=== PATIENT | male | born 1955 | race Caucasian/White ===

== ENCOUNTER 2020-02-05 09:30 | Inpatient (IN) ==
[~2020-02-05 09:30] MED LIST: Vancomycin 1,000 MG, Sodium Chloride IRRigation 1,000 ML IR ONE
[2020-02-05] MEDS ORDERED: Vancomycin 1,500 MG/265 ML IV.SOLN IVPB ONE (09:58)
[2020-02-05] MEDS ORDERED: Ringers Solution, Lactated 1,000 ML IVC SCH ×2 (10:00→10:15)
[2020-02-05] MEDS ORDERED: *HR* HYDROmorphone PF 0.5 MG/0.5 ML SYRINGE IVP PRN (10:10)
[2020-02-05] MEDS ORDERED: *HR* OxyCODONE/APAP 5/325 TABLET PO PRN (10:10)
[2020-02-05] MEDS ORDERED: Ondansetron 4 MG/2 ML VIAL IVP ONE (10:10)
[2020-02-05] MEDS ORDERED: *HR* Midazolam HCl 2 MG/2 ML VIAL ONE (10:39)
[2020-02-05] MEDS ORDERED: *HR* Phenylephrine 10 MG/ML VIAL ONE (10:39)
[2020-02-05] MEDS ORDERED: *HR* Rocuronium Bromide 50 MG/5 ML VIAL ONE (10:39)
[2020-02-05] MEDS ORDERED: *HR* Propofol 200 MG/20 ML VIAL IVP ONE (10:39)
[2020-02-05] MEDS ORDERED: Lidocaine -MPF 2% 2 ML VIAL ONE (10:39)
[2020-02-05] MEDS ORDERED: *HR* Remifentanil 1 MG VIAL IVP ONE ×2 (10:39→13:37)
[2020-02-05] MEDS ORDERED: *HR* Heparin 5,000 UNIT/ML VIAL ONE (10:39)
[2020-02-05] MEDS ORDERED: *HR* FentaNYL (PF) 100 MCG/2 ML VIAL ONE (10:39)
[2020-02-05] MEDS ORDERED: Neostigmine Methylsulfate 3 MG/3 ML SYRINGE ONE ×2 (10:40→14:14)
[2020-02-05] MEDS ORDERED: Clindamycin 900 MG/50 ML 900 MG/50 ML IV.SOLN IVPB ONE ×3 (10:51→20:00)
[2020-02-05] MEDS ORDERED: Isovue-300 200 mL Infus..BTL ONE (11:13)
[2020-02-05] MEDS ORDERED: Heparin 1,000 UNITS/500 mL 1,500 ML ONE (11:13)
[2020-02-05] MEDS ORDERED: Heparin 1,000 UNITS/500 mL 500 ML ONE (11:14)
[2020-02-05] MEDS ORDERED: Lidocaine -MPF 4% 5 ML AMPUL ONE (11:27)
[2020-02-05] MEDS ORDERED: *HR* Succinylcholine 200 MG/10 ML VIAL IVP ONE (12:08)
[2020-02-05] MEDS ORDERED: *HR* PHENYLEPHRINE 1,000 MCG/10 ML SYRINGE IVP ONE (12:15)
[2020-02-05] MEDS ORDERED: EPHEDrine 50 MG/ML VIAL ONE (12:16)
[2020-02-05] MEDS ORDERED: Ondansetron 4 MG/2 ML VIAL ONE (14:13)
[2020-02-05] MEDS ORDERED: *HR* OxyCODONE Immed Rel 5 MG TABLET PO PRN (16:11)
[2020-02-05] MEDS ORDERED: Naloxone 0.4 MG/ML INJ IVP PRN (16:11)
[2020-02-05] MEDS ORDERED: Acetaminophen 325 MG TABLET PO PRN ×2 (16:11)
[2020-02-05] MEDS ORDERED: *HR* HYDROcodone/Acet 5/325 mg TABLET PO PRN (16:11)
[2020-02-05] MEDS ORDERED: Ondansetron 4 MG/2 ML VIAL IVP PRN (16:11)
[2020-02-05] MEDS ORDERED: 0.9 % Sodium Chloride 1,000 ML IVC SCH (16:11)
[2020-02-05] MEDS ORDERED: *HR* Labetalol 20 MG/4 ML SYRINGE IVP PRN (16:11)
[2020-02-05] MEDS: *HR* Metoprolol 5 MG/5 ML VIAL IVP SCH ×2 (16:33→23:54)
[2020-02-05] MEDS: *HR* OxyCODONE Immed Rel 5 MG TABLET PO PRN (20:33)
[2020-02-05] MEDS ORDERED: tiZANidine 4 MG TABLET PO SCH (21:00)
[2020-02-06] MEDS: *HR* HYDROcodone/Acet 5/325 mg TABLET PO PRN ×2 (00:01→08:17)
[2020-02-06] MEDS ORDERED: Vancomycin 1,500 MG/265 ML IV.SOLN IVPB ONE (01:00)
[2020-02-06] MEDS: *HR* Metoprolol 5 MG/5 ML VIAL IVP SCH (04:25)
[2020-02-06 04:26] LABS: Basophils % 0.2 %; Eosinophils # 0.3 K/mcL (0.0-0.6); Eosinophils % 2.6 %; Hematocrit 38.8 % (37.5-50.1); Hemoglobin 12.3 g/dL (12.9-16.9); Immature Granulocytes % 0.3 % (0-4); Lymphocytes # 2.3 K/mcL (0.6-4.6); Lymphocytes % 23.6 %; Mean Corpuscular HGB Conc 31.7 g/dL (31.6-35.5); Mean Corpuscular Hemoglobin 30.1 pg (28.0-33.3); Mean Corpuscular Volume 94.9 fL (83.0-100.0); Monocytes # 0.9 K/mcL (0.0-1.3); Monocytes % 9.1 %; Neutrophils # 6.2 K/mcL (1.6-8.9); Platelet Count 168 K/mcL (140-400); Red Blood Count 4.09 M/mcL (4.19-5.50); Red Cell Distribution Width 14.6 % (11.5-14.5); Segmented Neutrophils % 64.2 %; White Blood Count 9.6 K/mcL (4.3-11.1)
[2020-02-06] MEDS: *HR* OxyCODONE Immed Rel 5 MG TABLET PO PRN (04:32)
[2020-02-06 04:33] LABS: BUN/Creatinine Ratio 19 (6-26); Blood Urea Nitrogen 24 mg/dL (8-23); Carbon Dioxide 29 mEq/L (23-29); Chloride 101 mEq/L (98-107); Glucose 97 mg/dL (70-105); Osmolality,Calculated 282 (280-300); Potassium 4.3 mEq/L (3.5-5.1); Sodium 134 mEq/L (136-145); eGFR For African Americans > 60 (> 60); eGFR For Non-African Americans 59 (> 60)
[2020-02-06] MEDS ORDERED: *HR* Heparin 5,000 UNIT/ML VIAL SQ SCH ×2 (06:00)
[2020-02-06 07:21] VITALS: BP 111/75
[2020-02-06] MEDS ORDERED: carvediloL 6.25 MG TABLET PO SCH (09:00)
[2020-02-06] MEDS ORDERED: rOPINIRole 1 MG TABLET PO SCH (09:00)
[2020-02-06] MEDS ORDERED: NON-FORMULARY MEDICATION 1 EACH EACH (Olmesartan/Hydrochlorothiazide [Olmesartan-Hctz 20-1 PO SCH (09:00)
[2020-02-06] MEDS ORDERED: hydroCHLOROthiazide 25 MG TABLET PO SCH (09:00)
[2020-02-06] MEDS ORDERED: Aspirin Enteric Coated 325 MG Tablet PO SCH (09:00)
== END 2020-02-06 10:30 | disposition home or self-care (01) | DRG 269 ==
LOC: SAMDAY 09:30 → 2NNU 16:10
PROVIDERS: ADMIT Surgery; ATTEND Surgery